=== PATIENT | female | born 1930 | race Caucasian/White ===

== ENCOUNTER 2016-04-12 11:09 | Observation (INO) ==
--- NOTE | 2016-04-12 11:37 | Emergency Department Note ---
START Narrative - START START: I examined this patient and my medical decision-making was reviewed with the PATTERN LEASE INSPECTOR/PA/Advanced Practice Nurse/Resident Physician. I agree with the documented findings, disposition and treatment plan as described except to the extent set forth below. ED attending note: Patient seen with emergency medicine resident Dr. Miller. We independently evaluated the patient. We independently had [id number] contact with the patient. Please see a copy of his note for details of the history and physical, evaluation, management and disposition of this emergency Department patient. Briefly: A 86-year-old female who was on anticoagulants Coumadin secondary to prior stroke. Presents with palpitations and feeling fatigued for the past 3 days. EKG reviewed without cardiology shows A. fib with RVR is about 120. No acute ischemic changes noted. Patient stated she would like to go home if possible. Although she symptomatic. Patient with IV Cardizem. Labs and x- rays. Disposition pending. Provided 30 minutes of critical care service for this patient controlled heart rate.
--- NOTE | 2016-04-12 11:43 | Emergency Department Note ---
Disposition Clinical Impression: New onset atrial fibrillation, Elevated troponin Disposition: Admitted As Inpatient Condition: Fair Forms: ED Satisfaction Letter Time of Disposition: 12:41 Chest Pain HPI - General Chief Complaint: ED Recheck/Abnormal Lab/Rx Stated Complaint: abnormal EKG Time Seen by Provider: 04/12/16 11:17 Source: patient Limitations: no limitations Vital Signs Reviewed: Yes Nursing Notes Reviewed: Yes - History of Present Illness HPI Narrative: 86-year-old female with history of coronary artery disease status post CABG 10 years ago as well as diabetes and previous stroke who presents to the emergency department for evaluation of abnormal EKG. Patient states that she has been feeling short of breath for the past 3 days with intermittent chest pain. Patient states that if she walks more than 10 feet she becomes short of breath. Patient was seen by her PCP earlier today who sent her to the emergency department for evaluation of an abnormal EKG. EKG shows new onset A. fib with a ventricular rate of 121 bpm. Patient denies any history of same. Currently chest pain-free at this time. Pt complaint: chest pain, other (Dyspnea) Onset (ago): day(s) (3) Duration: intermittent Onset: during exertion Pain Location: left chest Severity: mild Severity scale (1-10): 0 Pain Radiation: none Improves with: nothing Worsens with: nothing Associated symptoms: Reports: dyspnea, palpitations Treatments prior to arrival chest pain: none - Related Data Previous Rx's Medication Instructions Recorded Albuterol Sulfate [Albuterol 2 puff IH Q4HR PRN #1 hfa.aer.ad 08/20/15 Inhaler] Azithromycin [Azithromycin 6-Tab 250 mg PO PER PKG DI #6 tab 08/20/15 Pack] Benzonatate [Tessalon] 200 mg PO TID PRN #15 capsule 08/20/15 PredniSONE 40 mg PO DAILY #10 tablet 08/20/15 Allergies Allergy/AdvReac Type Severity Reaction Status Date / Time morphine AdvReac Hallucinati Verified 08/20/15 16:47 ng All systems ED: reviewed and negative except as stated. Constitutional: Denies: fever, chills Cardiovascular: Reports: chest pain, palpitations, dyspnea on exertion Respiratory: Denies: cough, dyspnea, wheezes Gastrointestinal: Denies: abdominal pain, nausea, vomiting Musculoskeletal: Denies: back pain Neurological: Denies: headache, weakness, numbness Chest Pain PMH - Past Medical History Medical history: Reports: cancer, coronary artery disease, CVA, diabetes, hyperlipidemia, hypertension, myocardial infarction, renal disease, TIA Psychiatric history: Reports: no psych history - Social History Smoking Status: Never smoker Alcohol use: Reports: none Drug use: Reports: none Physical Exam - General Limitations: no limitations General appearance: alert, in no apparent distress - Head Head exam: atraumatic, normocephalic, normal inspection - Chest Chest inspection: Present: normal inspection, symmetric chest wall rise - Respiratory Respiratory exam: Present: normal lung sounds bilaterally - Cardiovascular Cardiovascular exam: Present: tachycardia, irregular rhythm - Abdominal Exam Abdominal exam: Present: soft, Non-Tender. Absent: tenderness, distention, guarding, rebound, rigidity - Neurological Exam Neurological exam: Present: alert - Skin Skin exam: Present: warm, dry, intact, normal color Course - Reevaluation(s) Reevaluation #1: Patient's heart rate improved down to 76 bpm after Cardizem bolus. Troponin came back elevated at 0.05. Discussed findings with patient and family. Will admit to the hospital for further evaluation and treatment of new onset atrial fibrillation. Time: 12:42 Vital Signs Temperature 98 F 04/12/16 11:13 Pulse Rate 109 04/12/16 11:13 Respiratory Rate 18 04/12/16 11:13 Blood Pressure 109/69 04/12/16 11:13 O2 Sat by Pulse Oximetry 97 04/12/16 11:13 Temperature 98 F 04/12/16 11:13 Pulse Rate 75 04/12/16 12:28 Respiratory Rate 18 04/12/16 12:28 Blood Pressure 113/74 04/12/16 12:28 O2 Sat by Pulse Oximetry 95 04/12/16 12:28 Oxygen Delivery Oxygen Delivery Nasal Cannula Chest Pain - Medical Records Medical records reviewed: Yes I reviewed the patient's medical records. - Lab Data Lab results reviewed: Yes I reviewed the patient's lab results. Result diagrams: 04/12/16 11:59 04/12/16 11:59 Lab Results 04/12/16 04/12/16 04/12/16 Range/Units 11:59 11:59 11:59 WBC 13.6 H (4.3-11.1) K/mcL RBC 4.52 (3.82-4.97) M/mcL Hgb 13.5 (11.5-15.4) g/dL Hct 40.6 (35.3-44.9) % MCV 89.8 (83.0-100.0) fL MCH 29.9 (28.0-33.3) pg MCHC 33.3 (31.6-35.5) g/dL RDW 14.4 (11.5-14.5) % Plt Count 272 (140-400) K/mcL MPV 9.8 (9.4-12.4) fL Immature Gran % 0.7 (0-4) % Seg Neutrophils % 72.5 % Lymphocytes % 18.4 % Monocytes % 6.5 % Eosinophils % 1.3 % Basophils % 0.6 % Neutrophils # 9.8 H (1.6-8.9) K/mcL Lymphocytes # 2.5 (0.6-4.6) K/mcL Monocytes # 0.9 (0.0-1.3) K/mcL Eosinophils # 0.2 (0.0-0.6) K/mcL Basophils # 0.1 (0.0-0.2) K/mcL PT 27.8 H (9.4-12.1) Seconds INR 2.5 APTT 37.1 H (26.0-36.0) Seconds Sodium 141 (136-145) mEq/L Potassium 3.8 (3.5-4.5) mEq/L Chloride 106 (98-109) mEq/L Carbon Dioxide 23 (19-29) mEq/L BUN 26 H (7-20) mg/dL Creatinine 1.24 H (0.57-1.11) mg/dL Est GFR ( Amer) 50 L (> 60) Est GFR (Non-Af Amer) 41 L (> 60) BUN/Creatinine Ratio 21 (6-26) Glucose 185 H (70-99) mg/dL Calculated Osmolality 302 H (280-300) Calcium 9.9 (8.6-10.8) mg/dL Troponin I (0-0.03) ng/mL 04/12/16 Range/Units 11:59 WBC (4.3-11.1) K/mcL RBC (3.82-4.97) M/mcL Hgb (11.5-15.4) g/dL Hct (35.3-44.9) % MCV (83.0-100.0) fL MCH (28.0-33.3) pg MCHC (31.6-35.5) g/dL RDW (11.5-14.5) % Plt Count (140-400) K/mcL MPV (9.4-12.4) fL Immature Gran % (0-4) % Seg Neutrophils % % Lymphocytes % % Monocytes % % Eosinophils % % Basophils % % Neutrophils # (1.6-8.9) K/mcL Lymphocytes # (0.6-4.6) K/mcL Monocytes # (0.0-1.3) K/mcL Eosinophils # (0.0-0.6) K/mcL Basophils # (0.0-0.2) K/mcL PT (9.4-12.1) Seconds INR APTT (26.0-36.0) Seconds Sodium (136-145) mEq/L Potassium (3.5-4.5) mEq/L Chloride (98-109) mEq/L Carbon Dioxide (19-29) mEq/L BUN (7-20) mg/dL Creatinine (0.57-1.11) mg/dL Est GFR ( Amer) (> 60) Est GFR (Non-Af Amer) (> 60) BUN/Creatinine Ratio (6-26) Glucose (70-99) mg/dL Calculated Osmolality (280-300) Calcium (8.6-10.8) mg/dL Troponin I 0.05 H* (0-0.03) ng/mL - Radiology Data Radiology results reviewed: Yes I reviewed the patient's radiology results. - EKG Data EKG attestation: Yes I reviewed and interpreted this EKG. Rate: tachycardia Rhythm: A.Fib When compared to previous EKG there are: changes noted
[2016-04-12 12:08] LABS: Basophils # 0.1 K/mcL (0.0-0.2); Basophils % 0.6 %; Eosinophils # 0.2 K/mcL (0.0-0.6); Eosinophils % 1.3 %; Hematocrit 40.6 % (35.3-44.9); Hemoglobin 13.5 g/dL (11.5-15.4); Immature Granulocytes % 0.7 % (0-4); Lymphocytes # 2.5 K/mcL (0.6-4.6); Lymphocytes % 18.4 %; Mean Corpuscular HGB Conc 33.3 g/dL (31.6-35.5); Mean Corpuscular Hemoglobin 29.9 pg (28.0-33.3); Mean Corpuscular Volume 89.8 fL (83.0-100.0); Mean Platelet Volume 9.8 fL (9.4-12.4); Monocytes # 0.9 K/mcL (0.0-1.3); Monocytes % 6.5 %; Neutrophils # 9.8 K/mcL (1.6-8.9); Platelet Count 272 K/mcL (140-400); Red Blood Count 4.52 M/mcL (3.82-4.97); Red Cell Distribution Width 14.4 % (11.5-14.5); Segmented Neutrophils % 72.5 %
[2016-04-12 12:16] LABS: INR 2.5; Prothrombin Time 27.8 Seconds (9.4-12.1)
[2016-04-12 12:18] LABS: Activated Partial Thrombo Time 37.1 Seconds (26.0-36.0)
[2016-04-12 12:19] LABS: Calcium 9.9 mg/dL (8.6-10.8); Potassium 3.8 mEq/L (3.5-4.5)
[2016-04-12] MEDS ORDERED: Aspirin 325 MG TABLET PO ONE (12:32)
--- NOTE | 2016-04-12 14:21 | Internal Med History&Physical ---
Date of Encounter: 04/12/16 Time of Encounter: 14:15 Assessment and Plan (1) Chest pain Current visit: Yes Status: Acute The patient presented to our emergency department due to chest pain in the setting of tachycardia and possible atrial fibrillation. There was a mild elevation of troponin. Elevation of troponins likely secondary to tachycardia. Currently the patient is chest pain-free and heart rate is under control after the use of Cardizem. We will continue with telemetry monitoring. Will monitor troponins. Resume beta blockers. Monitor coagulation profile. Monitor kidney function tests. Monitor electrolytes tomorrow in a.m. Check fingersticks. TSH. We will obtain hemoglobin A1c. The patient's CODE STATUS is DNR/DNI comfort care. The plan of care was discussed in detail with both the patient and her daughter , they expressed understanding. Qualifiers: Chest pain type: precordial pain Qualified Code(s): R07.2 - Precordial pain (2) Elevated troponin Current visit: Yes Status: Acute Internal Medicine - H&P: HPI Chief complaint: Chest discomfort Admitted From: Emergency Dept Plans for Post Hospital Care: Home History of present illness: Ms. 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 She presented to our emergency department complaining of 4 days of substernal chest discomfort associated with shortness of breath. The patient went to her primary care physician's office and was found to be tachycardic and with an abnormal EKG. She was then evaluated in our emergency department. Initially her heart rate was 123, with a blood pressure 137/106 and an oxygen saturation of 96%. She did receive a dose of IV Cardizem and her heart rate went down to 75/m. Additional workup included a CBC which was essentially unremarkable, troponin was mildly elevated at 0.05. Chest x-ray was within normal limits. During my encounter with the patient she was otherwise asymptomatic, not in distress breathing with nasal cannula. Emergency department team admitted the patient for new onset atrial fibrillation. Her daughter was at bedside during my encounter with the patient. The patient and her daughter were not aware of any prior history of atrial fibrillation. However, upon review of her medical records there is a documentation about atrial fibrillation in [facility]. Additionally, the patient is on anticoagulation with Coumadin. She is also complaining of tooth pain, she was supposed to have a dental appointment this Tuesday. The patient was admitted for further management and workup. Patient denies fever, chills, syncope, loss of consciousness, rash, dysuria, diarrhea. Past Med Surg Social Fam HX - Past Medical History Medical history: cancer, coronary artery disease, CVA, diabetes, hyperlipidemia , hypertension, myocardial infarction, renal disease, TIA Psychiatric history: no psych history - Social History Smoking Status: Never smoker Alcohol use: none Drug use: none Internal Medicine - H&P: Meds Albuterol Neb [Proventil Neb] 2.5 mg IH Q4HR PRN 04/12/16 [History] Clopidogrel [Plavix] 75 mg PO DAILY 04/12/16 [History] Diltiazem HCl [Diltiazem 24Hr Cd] 120 mg PO DAILY 04/12/16 [History] HYDROcodone/Acet 5/325 mg [Laurel 5-325 mg] 1 - 2 tab PO BID PRN 04/12/16 [ History] Hydrochlorothiazide 12.5 mg PO DAILY 04/12/16 [History] Insulin Glargine,Hum.rec.anlog [Lantus Solostar] 40 unit SQ BID 04/12/16 [ History] Isosorbide MONOnitrate (24 HR) [Imdur] 30 mg PO DAILY 04/12/16 [History] Losartan Potassium [Cozaar] 50 mg PO DAILY 04/12/16 [History] Metoprolol [Lopressor] 50 mg PO BID 04/12/16 [History] Mometasone Furoate [Nasonex] 100 mcg NS DAILY 04/12/16 [History] Nitroglycerin [Nitrostat] 0.4 mg SL Q5M PRN 04/12/16 [History] Sertraline [Zoloft] 50 mg PO DAILY 04/12/16 [History] Warfarin [Coumadin] 5 mg PO QPM 04/12/16 [History] Allergies mold Allergy (Verified 04/12/16 13:42) Difficulty Breathing morphine Adverse Reaction (Verified 08/20/15 16:47) Hallucinating simvastatin Adverse Reaction (Verified 04/12/16 13:42) Muscle Pain All Systems PM: A 10-system review of systems was performed and is negative for pertinent findings except as documented above in the HPI. - Constitutional Constitutional: no chills, no fever(s), no night sweats - EENT Eyes: as per HPI, no change in vision, no discharge, no pain, no photophobia Ears: as per HPI, no ear discharge, no ear pain, no tinnitus Nose, mouth and throat: as per HPI, no dysphagia, no nasal discharge, no neck pain, no sore throat - Breasts Breasts: as per HPI - Cardiovascular Cardiovascular ROS IM: as per HPI, no chest pain, no diaphoresis, no dyspnea, no lightheadedness, no palpitations, no syncope - Respiratory Respiratory: as per HPI, no cough, no dyspnea, no wheezing, no excessive phlegm production - Gastrointestinal Gastrointestinal: as per HPI, no abdominal pain, no diarrhea, no hematemesis, no hematochezia, no melena, no nausea, no vomiting - Genitourinary Genitourinary: as per HPI, no change in urinary stream, no dysuria, no flank pain, no hematuria Menstruation: as per HPI - Musculoskeletal Musculoskeletal ROS IM: as per HPI, no numbness, no tingling - Integumentary Integumentary IM: as per HPI, no rash, no unusual bruising - Neurological Neurological ROS: as per HPI, no confusion, no convulsions, no focal weakness, no numbness, no tingling, no tremor(s) - Psychiatric Psychiatric: as per HPI - Endocrine Endocrine IM: as per HPI - Hematologic/Lymphatic Hematologic/Lymphatic: as per HPI, no easy bruising - Allergic/Immunologic Allergic/Immunologic: as per HPI - Constitutional Vitals: Temp Pulse Resp BP Pulse Ox 98 F 75 18 113/74 95 04/12/16 11:13 04/12/16 12:28 04/12/16 12:28 04/12/16 12:28 04/12/16 12:28 General appearance: Present: cooperative, A&O X 3, pleasant, obese - Head Head exam: Present: atraumatic, normocephalic - Eye Eye exam: Present: PERRL, conjuntiva pink, sclera anicteric Pupils: Present: PERRL - Neck Neck exam general surgery: Present: supple, trachea midline. Absent: lymphadenopathy - Respiratory Respiratory exam: Present: CTAB. Absent: accessory muscle use, rales, rhonchi, wheezes - Cardiovascular Cardiovascular exam: Present: RRR, +S1, +S2. Absent: diastolic murmur, gallop, rubs, systolic murmur - GI/Abdominal GI/Abdominal exam: Present: normal bowel sounds, soft, no peritoneal signs. Absent: distended, tenderness - Extremities Exam Extremities exam: Present: warm, radial pulses palpable and symetrical. Absent : calf tenderness, cyanotic, pedal edema - Neurological Exam Neurological exam: Present: CN II-XII intact, oriented X3, no focal deficits. Absent: pronater drift, facial droop, speech deficit - Skin Skin exam: Present: dry, intact Internal Med - H&P Results - Labs CBC & Chem 7: 04/12/16 11:59 04/12/16 11:59
[2016-04-12] MEDS ORDERED: Nitroglycerin 0.4 MG TAB.SUBL SL PRN (14:28)
[2016-04-12] MEDS ORDERED: Naloxone 0.4 MG/ML INJ IVP PRN (14:28)
[2016-04-12] MEDS ORDERED: D5% in Water 1,000 ML IV PRN (14:45)
[2016-04-12] MEDS ORDERED: *HR* Dextrose 50 % in Water (Syg) 50 ML SYRINGE IVP PRN (14:45)
[2016-04-12] MEDS ORDERED: Dextrose Gel 15 GM PO PRN ×2 (14:45)
[2016-04-12] MEDS: *HR* Warfarin 5 MG TABLET PO SCH (16:53)
[2016-04-12] MEDS: Insulin LISPRO 300 UNITS/3 ML VIAL SQ SCH (16:54)
[2016-04-12] MEDS: Insulin DETEMIR 100 UNIT/ML X5UNITS SQ SCH (21:11)
[2016-04-13 04:30] LABS: Basophils # 0.1 K/mcL (0.0-0.2); Basophils % 0.4 %; Eosinophils # 0.3 K/mcL (0.0-0.6); Eosinophils % 2.2 %; Hematocrit 39.2 % (35.3-44.9); Hemoglobin 13.2 g/dL (11.5-15.4); Immature Granulocytes % 0.3 % (0-4); Lymphocytes # 3.3 K/mcL (0.6-4.6); Lymphocytes % 25.6 %; Mean Corpuscular HGB Conc 33.7 g/dL (31.6-35.5); Mean Corpuscular Hemoglobin 30.6 pg (28.0-33.3); Mean Corpuscular Volume 90.7 fL (83.0-100.0); Mean Platelet Volume 10.2 fL (9.4-12.4); Monocytes # 0.9 K/mcL (0.0-1.3); Neutrophils # 8.4 K/mcL (1.6-8.9); Platelet Count 265 K/mcL (140-400); Red Blood Count 4.32 M/mcL (3.82-4.97); Red Cell Distribution Width 14.5 % (11.5-14.5); Segmented Neutrophils % 64.5 %
[2016-04-13 04:35] LABS: INR 2.8; Prothrombin Time 31.1 Seconds (9.4-12.1)
[2016-04-13 04:49] LABS: Hemoglobin A1C 7.5 %
[2016-04-13 05:00] LABS: Calcium 9.6 mg/dL (8.6-10.8); Chol/HDL Ratio 3.2 (0-4.9); Magnesium 1.5 mg/dL (1.6-2.6)
[2016-04-13 05:11] LABS: Thyroid Stimulating Hormone 2.657 mcIU/mL (0.350-4.840)
[2016-04-13] MEDS: Diltiazem CD (24hr) 120 MG CAPSULE PO SCH (08:23)
[2016-04-13] MEDS: Famotidine 20 MG TABLET PO SCH (08:23)
[2016-04-13] MEDS: Insulin LISPRO 300 UNITS/3 ML VIAL SQ SCH ×3 (08:23→17:26)
[2016-04-13] MEDS: Isosorbide MONOnitrate (24 HR) 30 MG TAB.ER.24H PO SCH (08:23)
--- NOTE | 2016-04-13 14:50 | Internal Med Progress Note ---
Date of Encounter: 04/13/16 Time of Encounter: 14:47 - Assessment and plan (1) Atrial fibrillation with RVR Current Visit: Yes Status: Acute Assessment and plan: has been trasntioned to oral cardizem and continued on oral metoprolol. HR this mornind at 104-105. symptomatically better. still in atrial fib. on coumadin for AC. will order ECHO to check for LVEF. tsh is normal. (2) Chest pain Current Visit: Yes Status: Acute Assessment and plan: chest pain free at this time. Most probably was brought about by A. fib with RVR. We will continue the aspirin, Plavix and beta mary and s/l NTG Qualifiers: Chest pain type: precordial pain Qualified Code(s): R07.2 - Precordial pain (3) Elevated troponin Current Visit: Yes Status: Acute Assessment and plan: Most likely related to demand ischemia secondary to A. fib with RVR. less likely secondary to ACS. - Subjective Interval history: Patient seen at the bedside. New point and she feels much better than yesterday, does not have any shortness of breath today. Was cleaning herself at the bedside. She was started on IV Cardizem drip which was stopped last night and has been switched to by mouth Cardizem. - Constitutional Vitals: Temp Pulse Resp BP Pulse Ox 98 F 105 16 135/70 99 04/13/16 11:32 04/13/16 11:32 04/13/16 11:32 04/13/16 11:32 04/13/16 11:32 General appearance: Present: cooperative, A&O X 3, pleasant, obese Exam: General appearance: Present: cooperative, A&O X 3, pleasant, obese - Head Head exam: Present: atraumatic, normocephalic - Eye Eye exam: Present: PERRL, conjuntiva pink, sclera anicteric Pupils: Present: PERRL - Neck Neck exam general surgery: Present: supple, trachea midline. Absent: lymphadenopathy - Respiratory Respiratory exam: Present: CTAB. Absent: accessory muscle use, rales, rhonchi, wheezes - Cardiovascular Cardiovascular exam: Present: RRR, +S1, +S2. Absent: diastolic murmur, gallop, rubs, systolic murmur - GI/Abdominal GI/Abdominal exam: Present: normal bowel sounds, soft, no peritoneal signs. Absent: distended, tenderness - Extremities Exam Extremities exam: Present: warm, radial pulses palpable and symetrical. Absent : calf tenderness, cyanotic, pedal edema - Neurological Exam Neurological exam: Present: CN II-XII intact, oriented X3, no focal deficits. Absent: pronater drift, facial droop, speech deficit - Skin Skin exam: Present: dry, intact Internal Medicine: Result - Labs CBC & Chem 7: 04/13/16 04:00 04/13/16 04:00 Labs: Short CBC 04/13/16 Range/Units 04:00 WBC 13.1 H (4.3-11.1) K/mcL Hgb 13.2 (11.5-15.4) g/dL Hct 39.2 (35.3-44.9) % Plt Count 265 (140-400) K/mcL Neutrophils # 8.4 (1.6-8.9) K/mcL BMP 04/13/16 04:00 Sodium 142 Potassium 4.0 Chloride 106 Carbon Dioxide 25 BUN 22 H Creatinine 1.29 H Glucose 137 H Calcium 9.6 Cardiac Enzymes 04/12/16 04/12/16 Range/Units 14:41 21:05 Troponin I 0.06 H* 0.04 H* (0-0.03) ng/mL - ABG Interpretation ABG results: PT/INR, D-dimer PT 31.1 Seconds (9.4-12.1) H 04/13/16 04:00 Consult Discharge Plan - Plan Referrals: Gian Pina MD [Primary Care Provider] - (WEB REQUEST SENT ON 04/13/16)
[2016-04-13] MEDS: *HR* HYDROcodone/Acet 5/325 mg TABLET PO PRN ×2 (15:06→21:31)
--- NOTE | 2016-04-13 15:23 | Electrocardiograph Report ---
[place] [id number] Test Date: 2016-04-12 Pat Name: Theresa Alex Department: 112 Room: 2A Gender: F Emergency Veterinary Technician: : 1930 Requested By: Hector Díaz Order Number: [id number] Reading MD: Lyn Mejia Measurements Intervals [place] Rate: 88 P: FL: 0 QRS: -51 QRSD: 165 T: 127 QT: 436 QTc: 482 Interpretive Statements ATRIAL FIBRILLATION MARKED LEFT AXIS DEVIATION LEFT BUNDLE BRANCH BLOCK Electronically Signed On 04-13-2016 15:21:35 EST by Lyn Mejia
--- NOTE | 2016-04-13 15:26 | Electrocardiograph Report ---
[place] [id number] Test Date: 2016-04-12 Pat Name: Theresa Alex Department: 105 Room: 2A35 Gender: F Autocad Draftsman: : 1930 Requested By: Daren Miller Order Number: [id number] Reading MD: Lyn Mejia Measurements Intervals [place] Rate: 121 P: [place]: 0 QRS: -49 QRSD: 159 T: 126 QT: 359 QTc: 431 Interpretive Statements ATRIAL FIBRILLATION WITH RAPID VENTRICULAR RESPONSE MARKED LEFT AXIS DEVIATION [QRS AXIS < -30] LEFT BUNDLE BRANCH BLOCK [120+ ms QRS DURATION, 80+ ms Q/S IN V1/V2, 85+ ms R IN I/aVL/V5/V6] Electronically Signed On 04-13-2016 15:24:30 EST by Lyn Mejia
[2016-04-13] MEDS: *HR* Warfarin 5 MG TABLET PO SCH (17:26)
[2016-04-13] MEDS: Insulin DETEMIR 100 UNIT/ML X5UNITS SQ SCH (21:28)
[2016-04-14 05:28] LABS: INR 2.5; Prothrombin Time 28.2 Seconds (9.4-12.1)
[2016-04-14 07:16] VITALS: BP 122/70
[2016-04-14] MEDS: Famotidine 20 MG TABLET PO SCH (07:40)
[2016-04-14] MEDS: Diltiazem CD (24hr) 120 MG CAPSULE PO SCH (07:40)
[2016-04-14] MEDS: Isosorbide MONOnitrate (24 HR) 30 MG TAB.ER.24H PO SCH (07:40)
[2016-04-14] MEDS: *HR* HYDROcodone/Acet 5/325 mg TABLET PO PRN (07:42)
[2016-04-14] MEDS: Insulin LISPRO 300 UNITS/3 ML VIAL SQ SCH (07:45)
--- NOTE | 2016-04-14 07:58 | ECHO - Doppler Report ---
Echocardiogram Name: Theresa Alex Date of Study: 04/13/2016 Date: 1930 Ht: 69.0 in Medical Record#: [id number] Age: 86 Wt: 217.0 lb Gender: Female BSA: 2.14 Order #: [id number] Location: [facility] Room #: 2A35 Reading Physician: Denzel Reed DO, ARISTIDES, LUIZ HERNANDEZ Inside Trucker: Jessica Ramos Ordering Physician: Hakan Isaacs MD Primary Physician: Gian Pina MD Indications: H/o AFIB w/RVR Impressions: LVEF 50-55%. Not all LV segments were well visualized, but overall function appeared to be low normal. Mild concentric left ventricular hypertrophy. Indeterminate diastolic function. Atypical septal motion consistent with post-operative status. Mild mitral regurgitation. Mild tricuspid regurgitation. Mild pulmonary hypertension. Estimated RVSP 41 mmHg. Findings: Study Quality * Technically sub-optimal due to poor echocardiographic windows. ECG Findings * Difficult to determine rhythm. Appeared to be atrial fibrillation with a BBB. Left Ventricle * LVEF 50-55%. * Normal LV chamber size. Not all LV segments were well visualized, but overall function appeared to be low normal. * Mild concentric left ventricular hypertrophy. * Indeterminate diastolic function. * Atypical septal motion consistent with post-operative status. Right Ventricle * Normal right ventricular structure and function. Left Atrium * Moderate to severely dilated left atrium. Right Atrium * Moderately dilated right atrium. Interatrial Septum * No evidence of PFO by color Doppler. Aortic Valve * Trileaflet aortic valve. * Mildly calcified aortic valve leaflets. * No aortic regurgitation. * No aortic stenosis. Mitral Valve * Mild mitral annular calcification * Mild mitral regurgitation. * No mitral stenosis. Tricuspid Valve * Normal tricuspid valve structure and function. * Mild tricuspid regurgitation. * Mild pulmonary hypertension. Estimated RVSP 41 mmHg. Pulmonic Valve * Pulmonic valve not well visualized. * No pulmonic regurgitation. Aorta * Normally sized aortic root. Pericardium * The pericardium appears normal. IVC * Normal IVC dimensions and inspiratory collapse. Pulmonary Artery * Normal visualized portions of the main pulmonary artery. History Hypertension Diabetes Hypercholesteremia Family History of CAD History of CAD/PTCA Myocardial Infarction Coronary Artery Bypass Graft 05/30/2012 a Previous Echo was performed. Measurements: BP: 110/ 69 2D Normal Values RVIDd: 3.60 cm <2.7 cm IVSd: 1.30 cm 0.6 - 1.0 cm LVIDd: 4.50 cm 3.7 - 5.6 cm LVPWd: 1.30 cm 0.6 - 1.1 cm LVIDs: 3.20 cm 1.5 - 3.6 cm AO: 3.10 cm < 4.0 cm LA: 4.80 cm 2.0 - 4.0cm %FS: 28.90 cm >25 % LA volume: 109 Mitral Valve Peak E:1.08 m/sec Peak E' Lat Yadiel:11.6 cm/s Peak E' Med Yadiel:7.9 cm/s E/E' Lat Ratio:9.3 E/E' Med Ratio:13.7 Tricuspid Valve TV Regurg Peak Grad: 36.00mmHg TV Regurg Peak Yadiel: 2.99m/sec Updated by Denzel Reed DO, FACC, LUIZ HERNANDEZ on 04/14/2016 7:51:49 AM electronically signed on 04/14/2016 7:53:01 AM with status of Final Wall Motion Stevens: 1=Normal, 2=Hypokinesis, 3=Akinesis, 4=Dyskinesis, 5=Aneurysmal, 6=Hyperkinetic, X=Not Visualized (Blank)=Missing
--- NOTE | 2016-04-14 09:23 | Discharge Summary ---
Date of Encounter: 04/14/16 Time of Encounter: 09:21 - Discharge Diagnosis (1) Atrial fibrillation with RVR Priority: Primary Status: Acute (2) Chest pain Priority: Primary Status: Acute Qualifiers: Chest pain type: precordial pain Qualified Code(s): R07.2 - Precordial pain (3) Elevated troponin Priority: Primary Status: Acute - Discharge Medications Home Medications: Albuterol Neb [Proventil Neb] 2.5 mg IH Q4HR PRN 04/12/16 [History] Clopidogrel [Plavix] 75 mg PO DAILY 04/12/16 [History] Diltiazem HCl [Diltiazem 24Hr Cd] 120 mg PO DAILY 04/12/16 [History] HYDROcodone/Acet 5/325 mg [[place] 5-325 mg] 1 - 2 tab PO BID PRN 04/12/16 [ History] Hydrochlorothiazide 12.5 mg PO DAILY 04/12/16 [History] Insulin Glargine,Hum.rec.anlog [Lantus Solostar] 40 unit SQ BID 04/12/16 [ History] Isosorbide MONOnitrate (24 HR) [Imdur] 30 mg PO DAILY 04/12/16 [History] Losartan Potassium [Cozaar] 50 mg PO DAILY 04/12/16 [History] Metoprolol [Lopressor] 50 mg PO BID 04/12/16 [History] Mometasone Furoate [Nasonex] 100 mcg NS DAILY 04/12/16 [History] Nitroglycerin [Nitrostat] 0.4 mg SL Q5M PRN 04/12/16 [History] Sertraline [Zoloft] 50 mg PO DAILY 04/12/16 [History] Warfarin [Coumadin] 5 mg PO QPM 04/12/16 [History] Allergies/Adverse Reactions: Allergies mold Allergy (Verified 04/12/16 13:42) Difficulty Breathing morphine Adverse Reaction (Verified 08/20/15 16:47) Hallucinating simvastatin Adverse Reaction (Verified 04/12/16 13:42) Muscle Pain Procedures/tests Complete & Pending: Procedures Performed prior 72 hours Category Date Time Status ECG 12 lead ECG [ECG] Routine Y 04/12/16 14:28 Completed ECG 12 lead ECG [ECG] Routine Y 04/13/16 07:00 Ordered EV echocardiogram Routine Y 04/13/16 10:09 Completed Date of admission: 04/12/16 13:27 Primary care physician: Gian Pina MD Consults: 04/12/16 14:28 Consult to Nurse Navigator [CONS] Routine Comment: 04/12/16 14:58 Consult to [employer] Web Developer [CONS] Routine Reason for SW Consult: Currently has HH services but pays out of pocket. 04/13/16 11:10 OT [Consult to Occupational Therapy] [CONS] Routine Comment: Evaluate, develop and implement POC PT [Consult to Physical Therapy] [CONS] Routine Comment: Evaluate, develop and implement POC Discharging clinician: Amos Isaacs Anticipated date of discharge: 04/14/16 - Patient Status Disposition: Home, Self-Care Condition: Fair Functional capacity at discharge: independent ambulation Overall status at discharge: patient is back to baseline - Discharge Instructions Instructions: Atrial Fibrillation (DC) Follow Up With: Gian Pina MD [Primary Care Provider] - 04/16/16 1:00 pm ( ) Denzel Reed DO [Partnered Physician] - 04/28/16 12:30 pm ( ) - Diet and Activity Activity: other (avoid exertion for 1 week ) Diet: advance to your usual diet Interval History: Ms. 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 She presented to our emergency department complaining of 4 days of substernal chest discomfort associated with shortness of breath. The patient went to her primary care physician's office and was found to be tachycardic and with an abnormal EKG. She was then evaluated in our emergency department. Initially her heart rate was 123, with a blood pressure 137/106 and an oxygen saturation of 96%. She did receive a dose of IV Cardizem and her heart rate went down to 75/m. Additional workup included a CBC which was essentially unremarkable, troponin was mildly elevated at 0.05. Chest x-ray was within normal limits. During my encounter with the patient she was otherwise asymptomatic, not in distress breathing with nasal cannula. Emergency department team admitted the patient for new onset atrial fibrillation. Her daughter was at bedside during my encounter with the patient. The patient and her daughter were not aware of any prior history of atrial fibrillation. However, upon review of her medical records there is a documentation about atrial fibrillation in [facility]. Additionally, the patient is on anticoagulation with Coumadin. She is also complaining of tooth pain, she was supposed to have a dental appointment this Tuesday. The patient was admitted for further management and workup. Patient denies fever, chills, syncope, loss of consciousness, rash, dysuria, diarrhea. Hospital course: she was admitted for atrial fib with RVR. SHe was started on diltiazem drip was trasntioned to oral cardizem and continued on oral metoprolol. HR this mornind at 80-90s. symptomatically better. ECHO done showed LVEF of 50-55% with mild concentric LVH and indeterminate diastolic ffxn. on coumadin for AC. she remained hemodynamically stable for dc, she is being dc today and will give referral to see cardio as OP. Time spent discussing smoking cessation with patient: more than 10 minutes - Time Spent with Patient Total time spent providing and/or coordinating discharge services: Greater than 30 minutes - Constitutional Vitals: Temp Pulse Resp BP Pulse Ox 98.4 F 94 16 122/70 95 04/14/16 07:13 04/14/16 07:13 04/14/16 07:13 04/14/16 07:13 04/14/16 07:13 General appearance: Present: cooperative, A&O X 3, pleasant, obese Exam: General appearance: Present: cooperative, A&O X 3, pleasant, obese - Head Head exam: Present: atraumatic, normocephalic - Eye Eye exam: Present: PERRL, conjuntiva pink, sclera anicteric Pupils: Present: PERRL - Neck Neck exam general surgery: Present: supple, trachea midline. Absent: lymphadenopathy - Respiratory Respiratory exam: Present: CTAB. Absent: accessory muscle use, rales, rhonchi, wheezes - Cardiovascular Cardiovascular exam: Present: RRR, +S1, +S2. Absent: diastolic murmur, gallop, rubs, systolic murmur - GI/Abdominal GI/Abdominal exam: Present: normal bowel sounds, soft, no peritoneal signs. Absent: distended, tenderness - Extremities Exam Extremities exam: Present: warm, radial pulses palpable and symetrical. Absent : calf tenderness, cyanotic, pedal edema - Neurological Exam Neurological exam: Present: CN II-XII intact, oriented X3, no focal deficits. Absent: pronater drift, facial droop, speech deficit - Skin Skin exam: Present: dry, intact
--- NOTE | 2016-04-14 09:53 | Physician Discharge Referral ---
Home Health/Hosp Referral Info Transfer to: Home Health Attending Provider: savannah cabezas - Diagnosis (1) Atrial fibrillation with RVR Status: Acute (2) Chest pain Status: Acute (3) Elevated troponin Status: Acute - Respiratory Orders Oxygen / L per min Smoking Cessation: Smoking cessation has been advised. For more information, call the [place] Tobacco Quit Line at 6-244-LQVR-NOW. - Diet/Nutrition Diet/Nutrition Orders: Regular - Activity Activity Orders: Ambulate - Services Needed Following services are medically necessary services: Nursing, Home Health Aide - Transfer Medications Home Medications: Albuterol Neb [Proventil Neb] 2.5 mg IH Q4HR PRN 04/12/16 [History] Clopidogrel [Plavix] 75 mg PO DAILY 04/12/16 [History] Diltiazem HCl [Diltiazem 24Hr Cd] 120 mg PO DAILY 04/12/16 [History] HYDROcodone/Acet 5/325 mg [[place] 5-325 mg] 1 - 2 tab PO BID PRN 04/12/16 [ History] Hydrochlorothiazide 12.5 mg PO DAILY 04/12/16 [History] Insulin Glargine,Hum.rec.anlog [Lantus Solostar] 40 unit SQ BID 04/12/16 [ History] Isosorbide MONOnitrate (24 HR) [Imdur] 30 mg PO DAILY 04/12/16 [History] Losartan Potassium [Cozaar] 50 mg PO DAILY 04/12/16 [History] Metoprolol [Lopressor] 50 mg PO BID 04/12/16 [History] Mometasone Furoate [Nasonex] 100 mcg NS DAILY 04/12/16 [History] Nitroglycerin [Nitrostat] 0.4 mg SL Q5M PRN 04/12/16 [History] Sertraline [Zoloft] 50 mg PO DAILY 04/12/16 [History] Warfarin [Coumadin] 5 mg PO QPM 04/12/16 [History] Allergies/Adverse Reactions: Allergies mold Allergy (Verified 04/12/16 13:42) Difficulty Breathing morphine Adverse Reaction (Verified 08/20/15 16:47) Hallucinating simvastatin Adverse Reaction (Verified 04/12/16 13:42) Muscle Pain Certification: Further, I certify that my clinical findings support that this patient is homebound (i.e. absences from home require considerable and taxing effort and are for medical reasons or hoahaoism services or infrequently or short duration when for other reasons) because: Homebound Reason: Patient requires assistance of a person or device to safely leave home Attestation: My signature below is to certify that this patient is under my care and that I, or nurse practitioner, or a physician's medical laboratory assistant working with me, has a face-to -face encounter with this patient.
== END 2016-04-14 11:39 | disposition home or self-care (01) ==
LOC: 2ANU 11:09 → EMEROO 11:09 → SUATTDRO 13:27 → 2ANU 14:25
PROVIDERS: ADMIT Internal Medicine; ATTEND Internal Medicine Endocrinology, Diabetes & Metabolism